=== PATIENT | female | born 1965 | race Caucasian/White ===

== ENCOUNTER 2017-09-16 05:48 | Emergency (ER) | payer OTHER ==
[2017-09-16 06:04] VITALS: BP 110/82; PULSE 85; TEMP 97.8; BMI 29.9
--- NOTE | 2017-09-16 06:30 | PDOC ---
History of Present Illness - General History Source: Patient Exam Limitations: No Limitations <Laura Hernandez - Last Filed: 09/16/17 06:35> - History of Present Illness Initial Comments: 09/16/17 06:40 The patient is a 52 year old female with a significant PMH of PTSD who presents to the emergency department with palpitations earlier today and increased anxiety over the past few days. The patient states she was having an argument with her fiance when she began experiencing sudden onset palpitations that have since resolved. The patient notes she has been feeling anxious due to her father passing away 4 months ago and a recent divorce. Patient states her psychiatrist also 2 months ago and is not currently following with a psychiatrist. Patient was on low dose klonopin but does not have any more meds. Patient denies suicidal or homicidal ideation. The patient denies chest pain, shortness of breath, headache and dizziness. Denies fever, chills, nausea, vomit, diarrhea and constipation. Denies dysuria, frequency, urgency and hematuria. Allergies: NKA Past surgical history: None reported. Social history: No reported alcohol, drug, or cigarette use. PCP: Dr. Kennedy <Samantha Szymanski - Last Filed: 09/16/17 06:42> - General Chief Complaint: Psychiatric Stated Complaint: Anxiety w/ palpitation Time Seen by Provider: 09/16/17 06:01 Past History - Suicide/Smoking/Psychosocial Hx Smoking History: Current some day smoker Have you smoked in the past 12 months: Yes Information on smoking cessation initiated: No Hx Alcohol Use: No Drug/Substance Use Hx: No <Laura Hernandez - Last Filed: 09/16/17 06:35> <Samantha Szymanski - Last Filed: 09/16/17 06:42> - Past Medical History Allergies/Adverse Reactions: Allergies Allergy/AdvReac Type Severity Reaction Status Date / Time No Known Allergies Allergy Verified 09/16/17 06:04 Home Medications: Ambulatory Orders Alprazolam [Xanax] 0.25 mg PO Q12H PRN #10 tablet MDD 2 09/16/17 Review of Systems - Review of Systems Able to Perform ROS?: Yes Comments:: 09/16/17 06:41 GENERAL/CONSTITUTIONAL: No fever or chills. No weakness. HEAD, EYES, EARS, NOSE AND THROAT: No change in vision. No ear pain or discharge. No sore throat. CARDIOVASCULAR: (+)Palpitations. No chest pain or shortness of breath. RESPIRATORY: No cough, wheezing, or hemoptysis. GASTROINTESTINAL: No nausea, vomiting, diarrhea or constipation. GENITOURINARY: No dysuria, frequency, or change in urination. MUSCULOSKELETAL: No joint or muscle swelling or pain. No neck or back pain. SKIN: No rash NEUROLOGIC: No headache, vertigo, loss of consciousness, or change in strength/ sensation. ENDOCRINE: No increased thirst. No abnormal weight change. HEMATOLOGIC/LYMPHATIC: No anemia, easy bleeding, or history of blood clots. ALLERGIC/IMMUNOLOGIC: No hives or skin allergy. <Samantha Szymanski - Last Filed: 09/16/17 06:42> *Physical Exam - Vital Signs Last Vital Signs Temp Pulse Resp BP Pulse Ox 97.8 F 85 17 110/82 96 09/16/17 05:53 09/16/17 05:53 09/16/17 05:53 09/16/17 05:53 09/16/17 05:53 <Laura Hernandez - Last Filed: 09/16/17 06:35> - Vital Signs Last Vital Signs Temp Pulse Resp BP Pulse Ox 97.8 F 85 17 110/82 96 09/16/17 05:53 09/16/17 05:53 09/16/17 05:53 09/16/17 05:53 09/16/17 05:53 - Physical Exam Comments: 09/16/17 06:41 GENERAL: Awake, alert, and fully oriented, in no acute distress HEAD: No signs of trauma EYES: PERRLA, EOMI, sclera anicteric, conjunctiva clear ENT: Auricles normal inspection, hearing grossly normal, nares patent, oropharynx clear without exudates. Moist mucosa NECK: Normal ROM, supple, no lymphadenopathy, JVD, or masses LUNGS: Breath sounds equal, clear to auscultation bilaterally. No wheezes, and no crackles HEART: Regular rate and rhythm, normal S1 and S2, no murmurs, rubs or gallops ABDOMEN: Soft, nontender, normoactive bowel sounds. No guarding, no rebound. No masses EXTREMITIES: Normal range of motion, no edema. No clubbing or cyanosis. No cords, erythema, or tenderness NEUROLOGICAL: Cranial nerves II through XII grossly intact. Normal <Samantha Szymanski - Last Filed: 09/16/17 06:42> Medical Decision Making - Medical Decision Making 09/16/17 06:25 Ms. Olivera is a 52-year-old female with no significant past medical history, with a prior history of anxiety who presents emergency department with a complaint of palpitations and anxiety. Patient describes several life stressors including being in the midst of a divorce, currently living with a controlling boyfriend, daughter and the midst of a divorce. Patient states for the past 3-4 months she's felt recently anxious. 4 months ago her father . 2 months ago her psychiatrist . Currently she denies any suicidal ideation or homicidal ideation. Patient denies access to firearms Patient denies drug or alcohol abuse. Patient has been unable to find a psychiatrist since her primary psychiatrist is . She was given a referral to a psychiatrist in [place], she will call today. On examination Regular rate and rhythm Lungs are clear No abdominal tenderness Patient is awake, alert, oriented. Patient is appropriately interactive with examiner. Patient answers all questions appropriate. Patient has good eye contact Will discharge this patient on Xanax as she says Klonopin gives her headache. Will give a short course of this. Patient asked to follow-up with psychiatry <Laura Hernandez - Last Filed: 09/16/17 06:35> *DC/Admit/Observation/Transfer - Discharge Dispostion Decision to Admit order: No <Laura Hernandez - Last Filed: 09/16/17 06:35> - Attestations Scribe Attestion: 09/16/17 06:42 Documentation prepared by Samantha Szymanski, acting as emergency medicine medical director for Laura Hernandez MD. <Samantha Szymanski - Last Filed: 09/16/17 06:42> Diagnosis at time of Disposition: Anxiety - Discharge Dispostion Disposition: HOME Condition at time of disposition: Fair - Prescriptions Prescriptions: Alprazolam [Xanax] 0.25 mg PO Q12H PRN #10 tablet MDD 2 PRN Reason: Anxiety - Referrals Referrals: Antonio Kennedy MD [Primary Care Provider] - Trisha Lopez MD [Staff Physician] - - Patient Instructions Printed Discharge Instructions: DI for Anxiety -- Adult Additional Instructions: Thank you for coming to the ER today You MUST follow up with the psychiatrist within 2 days Please take medications as prescribed Return to the ER for any other concerns or complaints - Post Discharge Activity
--- NOTE | 2017-09-16 13:42 | EKG ---
Test Reason : Blood Pressure : / mmHG Vent. Rate : 084 BPM Atrial Rate : 084 BPM P-R Int : 158 ms QRS Dur : 074 ms QT Int : 406 ms P-R-T Axes : 035 018 043 degrees QTc Int : 479 ms NORMAL SINUS RHYTHM NORMAL ECG NO PREVIOUS ECGS AVAILABLE Confirmed by MD Masha, Jr ([id number]) on 09/16/2017 1:42:23 PM Referred By: Confirmed By:Jr Flanagan MD
== END 2017-09-16 06:51 | disposition home or self-care (01) ==
LOC: JER 05:48
DX: F41.9 Anxiety disorder, unspecified (principal); F43.10 Post-traumatic stress disorder, unspecified
CPT/HCPCS: 93005; 93010; 99281-25

== ENCOUNTER 2020-11-29 12:16 | Emergency (ER) | payer OTHER ==
[2020-11-29 12:23] VITALS: BP 91/67; PULSE 90; TEMP 97; BMI 31.4
== END 2020-11-29 13:19 | disposition home or self-care (01) ==
LOC: JERFT 12:16
DX: F41.9 Anxiety disorder, unspecified (principal)
CPT/HCPCS: 99281-25